=== PATIENT | female | born 1985 | race Caucasian/White ===

== ENCOUNTER → 2016-11-05 | Outpatient (CLI) | payer OTHER ==
[~2016-11-05] MED LIST: ESCI10TA PO; LMT25T; METF500T; NF-LAM100T PO; RSP1T PO
== END ==
LOC: LAB 11:31
PROVIDERS: ATTEND Obstetrics & Gynecology
DX: N91.0 Primary amenorrhea (principal)
CPT/HCPCS: 36415; 84146; 84443; 84702